=== PATIENT | male | born 1970 | race Caucasian/White ===

== ENCOUNTER → 2016-09-05 | Outpatient (CLI) | payer BC ==
--- NOTE | 2016-09-05 11:29 | MRI ---
Study: MRI of the Right Shoulder. Indication: SHOULDER PAIN Technique: Multiplanar, multi sequence MRI of the right shoulder was obtained without intravenous contrast. Comparison: None. Findings: Moderate AC joint osteoarthritis. Type 2 acromion with mild lateral downsloping. Moderate volume subacromial/subdeltoid bursal fluid. Retracted full-thickness, full width supraspinatus and infraspinatus tendon tearing noted with the torn tendon fibers lying at the level of the medial 3rd of the humeral head. Subscapularis tendinosis without tear. Teres minor tendon intact. Moderate intramuscular edema within the infraspinatus muscle belly. No atrophy or fatty infiltration rotator cuff musculature. Long head biceps tendon intact. Circumferential labral truncation and tearing noted with changes most pronounced posteriorly reduction labral caliber greater than 75%. In addition there is marrow edema of the posterolateral margin of the humeral head, which could relate to posterior glenohumeral impingement. No definitive Hill-Sachs fracture identified. Minimal glenohumeral joint osteoarthritis with tiny joint effusion. No acute fracture or osseous contusion. Impression: Retracted full-thickness, full width supraspinatus and infraspinatus tendon tearing. Moderate intramuscular edema infraspinatus muscle belly. Subscapularis tendinosis Circumferential labral truncation and tearing with changes most pronounced superiorly and posteriorly. Minimal glenohumeral joint osteoarthritis with a tiny joint effusion. Moderate AC joint osteoarthritis. Electronically signed by: Malcom Dumont MD 09/05/2016 11:27
== END | disposition home or self-care (01) ==
LOC: MRI 08:52
PROVIDERS: ATTEND Family Medicine
DX: M75.101 Unspecified rotator cuff tear or rupture of right shoulder, not specified as traumatic (principal); M75.81 Other shoulder lesions, right shoulder

== ENCOUNTER 2016-09-26 07:34 | Emergency (ER) | payer BC ==
[2016-09-26 07:43] VITALS: TEMP 99.4
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
[2016-09-26] MEDS ORDERED: HYDROcodone 10MG/APAP 325MG 1 EA TAB PO ONE (08:49)
[2016-09-26 09:07] VITALS: O2SAT 98
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
--- NOTE | 2016-09-26 09:19 | RAD ---
EXAM DESCRIPTION: Shoulder,Right 2 or More Views CLINICAL HISTORY: TRAUMA, SHOULDER PAIN FINDINGS/ IMPRESSION: No fracture or dislocation. Mild acromioclavicular osteoarthritis. Inferolateral acromial spur and spur at the greater tuberosity Visualized right lung is clear Electronically signed by: Fareed Aviles MD 09/26/2016 9:18 AM PREPARATION SUPERVISOR
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
[2016-09-26 18:51] VITALS: BP 162/94
== END 2016-09-26 10:10 | disposition home or self-care (01) ==
LOC: ER 07:34
DX: S06.9X1A Unspecified intracranial injury with loss of consciousness of 30 minutes or less, initial encounter (principal); M25.511 Pain in right shoulder; I10 Essential (primary) hypertension; Z88.0 Allergy status to penicillin; Y04.2XXA Assault by strike against or bumped into by another person, initial encounter

== ENCOUNTER → 2017-06-26 | Outpatient (CLI) | payer BC | END | disposition home or self-care (01) | LOC: GMAB 10:19 | PROVIDERS: ATTEND Family Medicine | DX: R79.9 Abnormal finding of blood chemistry, unspecified (principal) ==

== ENCOUNTER → 2020-04-03 | Outpatient (CLI) | payer BC, OTHER | LOC: GMAE 10:55 | PROVIDERS: ATTEND Family Medicine | DX: Z00.00 Encounter for general adult medical examination without abnormal findings (principal) ==